=== PATIENT | male | born 2000 | race African-American/Black ===

== ENCOUNTER → 2023-07-01 | Emergency (ER) | payer SELFPAY ==
--- NOTE | 2023-07-01 20:43 | RAD REPORT ---
EXAM DESCRIPTION: US - Extremity Nonvascular Limited - 07/01/2023 7:30 pm CLINICAL HISTORY: breast lump, r/o abscess;Pain COMPARISON: No comparisons TECHNIQUE: Sonographic grayscale and color flow images of the right breast were obtained. FINDINGS: Evaluation of the lateral aspect of the right breast reveals a hypoechoic wider than tall well-circumscribed lesion with internal vascularity and a preserved echogenic hilum, measuring 1.2 x 1.1 x 0.9 cm, underlying the palpable abnormality, most compatible with a prominent lymph node. Incre ased echogenicity of the surrounding fat suggesting inflammatory changes. IMPRESSION: Palpable right breast abnormality corresponds to a prominent superficial lymph node with adjacent inflammatory changes in the subcutaneous fat compatible with reactive/inflammatory process. No appreciable fluid collections.
--- NOTE | 2023-07-01 20:49 | EDPHYS ---
Physician Documentation [facility] Name: Aly Montgomery Age: 22 yrs Sex: Male : 2000 Arrival Date: 07/01/2023 Time: 18:41 Bed 12 Private MD: ED Physician Johan Manuel Historical: - Allergies: 07/01 18:55 No Known Allergies; ap3 - Home Meds: 18:55 None [Active]; ap3 - PMHx: 18:55 None; ap3 - PSHx: 18:55 None; ap3 - Immunization history:: Client reports having NOT received the Covid vaccine. Flu vaccine is not up to date. - Social history:: Smoking status: Patient denies any tobacco usage or history of. Patient uses alcohol, occasionally. Vital Signs: 18:54 BP 135 / 77; Pulse 89; Resp 17; Temp 98.2; Pulse Ox 100% ; Weight 79.38 kg; Height 5 ap3 ft. 9 in. ; Pain 6/10; 18:54 Body Mass Index 25.84 (79.38 kg, 175.26 cm) ap3 18:54 Pain Scale: Adult ap3 MDM: 18:43 Patient medically screened. kb 07/01 18:52 Order name: US Bloom Nonvasular Limited; Complete Time: 20:45 kb Administered Medications: No medications were administered Disposition Summary: 07/01/23 20:49 Discharge Ordered Notes: Location: Home kb Condition: Stable kb Diagnosis - Other nonspecific lymphadenitis kb Followup: kb - With: Emergency Department - When: As needed - Reason: Worsening of condition Followup: kb - With: Private Physician - When: 2 - 3 days - Reason: Recheck today's complaints, Continuance of care, Re-evaluation by your physician Discharge Instructions: - Discharge Summary Sheet kb - Lymphadenopathy kb Forms: - Medication Reconciliation Form kb - Thank You Letter kb - Antibiotic Education kb - Prescription Opioid Use kb - Patient Portal Instructions kb - Leadership Thank You Letter kb Signatures: Dispatcher [employer] Payton Watson, Pema Arechiga, RN RN ap3
--- NOTE | 2023-07-01 20:49 | ER ---
Nurse's Notes [facility] Name: Aly Montgomery Age: 22 yrs Sex: Male : 2000 Arrival Date: 07/01/2023 Time: 18:41 Bed 12 Private MD: Diagnosis: Other nonspecific lymphadenitis Presentation: 07/01 18:54 Chief complaint: Patient states: he noticed a lump near his right nipple approx one ap3 week ago. patient currently rates his pain as a 6/10 on the pain scale. Coronavirus screen: At this time, the client does not indicate any symptoms associated with coronavirus-19. Ebola Screen: No symptoms or risks identified at this time. Initial Sepsis Screen: Does the patient meet any 2 criteria? No. Patient's initial sepsis screen is negative. Does the patient have a suspected source of infection? No. Patient's initial sepsis screen is negative. Risk Assessment: Do you want to hurt yourself or someone else? Patient reports no desire to harm self or others. Onset of symptoms is unknown. 18:54 Method Of Arrival: Ambulatory ap3 18:54 Acuity: BETHEL 3 ap3 Triage Assessment: 18:56 General: Appears in no apparent distress. Behavior is calm, cooperative, appropriate ap3 for age. Pain: Complains of pain in right breast Pain currently is 6 out of 10 on a pain scale. Pain began gradually. Neuro: Level of Consciousness is awake, alert, obeys commands, Oriented to person, place, time, situation, Appropriate for age. Cardiovascular: Patient's skin is warm and dry. Respiratory: Airway is patent Respiratory effort is even, unlabored, Respiratory pattern is regular, symmetrical. Historical: - Allergies: 18:55 No Known Allergies; ap3 - Home Meds: 18:55 None [Active]; ap3 - PMHx: 18:55 None; ap3 - PSHx: 18:55 None; ap3 - Immunization history:: Client reports having NOT received the Covid vaccine. Flu vaccine is not up to date. - Social history:: Smoking status: Patient denies any tobacco usage or history of. Patient uses alcohol, occasionally. Screenin:56 [facility] ED Fall Risk Assessment (Adult) History of falling in the last 3 months, ap3 including since admission No falls in past 3 months (0 pts). Abuse screen: Denies threats or abuse. Nutritional screening: No deficits noted. Tuberculosis screening: No symptoms or risk factors identified. Assessment: 19:20 General: Appears in no apparent distress. Behavior is calm, cooperative. Pain: Pain hb currently is 3 out of 10 on a pain scale. at worst was 6 out of 10 on a pain scale. Neuro: Level of Consciousness is awake, alert, obeys commands, Oriented to person, place, time, situation. Cardiovascular: Patient's skin is warm and dry. Respiratory: Respiratory effort is even, unlabored, Respiratory pattern is regular, symmetrical. GI: No signs and/or symptoms were reported involving the gastrointestinal system. : No signs and/or symptoms were reported regarding the genitourinary system. EENT: No signs and/or symptoms were reported regarding the EENT system. Derm: Reports pain near right nipple. Musculoskeletal: No signs and/or symptoms reported regarding the musculoskeletal system. 20:23 Reassessment: Patient appears in no apparent distress at this time. Patient and/or hb family updated on plan of care and expected duration. Pain level reassessed. Patient is alert, oriented x 3, equal unlabored respirations, skin warm/dry/pink. Vital Signs: 18:54 BP 135 / 77; Pulse 89; Resp 17; Temp 98.2; Pulse Ox 100% ; Weight 79.38 kg; Height 5 ap3 ft. 9 in. ; Pain 6/10; 18:54 Body Mass Index 25.84 (79.38 kg, 175.26 cm) ap3 18:54 Pain Scale: Adult ap3 ED Course: 18:43 Patient arrived in ED. rg4 18:43 Payton Padgett F[facility]-C [facility] kb 18:43 Johan Manuel MD is Attending Physician. kb 18:54 Pema Maharaj, ONEIL is Primary Nurse. ap3 18:55 Triage completed. ap3 18:56 Arm band placed on right wrist. ap3 18:56 Patient has correct armband on for positive identification. Bed in low position. Call ap3 light in reach. Side rails up X 1. Adult w/ patient. Pulse ox on. NIBP on. 19:32 US Extrmty Nonvasular Limited In Process Unspecified. EDMS 20:01 Primary Nurse role handed off by Pema Maharaj, ONEIL wm 20:22 Harrington, Tabby, RN is Primary Nurse. hb 20:23 No provider procedures requiring assistance completed. Patient did not have IV access hb during this emergency room visit. 20:59 Provided Education on: results, medications . hb Administered Medications: No medications were administered Medication: 20:23 VIS not applicable for this client. hb Outcome: 20:49 Discharge ordered by . aretha 20:59 Discharged to home ambulatory, with family, hb 20:59 Condition: stable 20:59 Discharge instructions given to patient, significant other, Instructed on discharge instructions, follow up and referral plans. medication usage, Demonstrated understanding of instructions, follow-up care, medications, 21:00 Patient left the ED. hb Signatures: Dispatcher [employer] EDMS Payton Padgett, PREP ROOM SUPERVISOR-C PREP ROOM SUPERVISOR-Ckb Tabby Harrington, RN RN Alycia Hansen 4 Pema Maharaj RN RN ap3 Joy Farrar
[2023-07-01 21:11] VITALS: BP 135/77; TEMP 98.2; O2SAT 100
== END ==
LOC: ER 18:41
DX: I88.8 Other nonspecific lymphadenitis (principal)
CPT/HCPCS: 76882

== ENCOUNTER → 2023-07-06 | Emergency (ER) | payer SELFPAY ==
[~2023-07-06] MED LIST: KETOROLAC 30 MG/ML INJ ONE
[2023-07-06 17:17] LABS: Hematocrit 43.4 % (39.6-49.0); MCV 86.3 fL (80-100); MPV 8.1 fL (7.6-11.3); Platelets 211 thou/uL (152-406); RBC Red Blood Cell Count 5.03 M/uL (4.33-5.43)
[2023-07-06 17:40] LABS: Albumin 3.5 g/dL (3.4-5.0); Bilirubin Total 0.5 mg/dL (0.2-1.0); Protein, Total 8.3 g/dL (6.4-8.2)
[2023-07-06 17:41] LABS: Potassium 4.3 mEq/L (3.5-5.1)
--- NOTE | 2023-07-06 18:17 | RAD REPORT ---
EXAM DESCRIPTION: CT - Thorax W/ Con - 07/06/2023 6:05 pm CLINICAL HISTORY: breast, axillary swelling COMPARISON: Extremity Nonvascular Limited dated 07/01/2023 TECHNIQUE: CT of the chest was obtained with IV contrast . All CT scans are performed using dose optimization technique as appropriate and may include automated exposure control or mA/KV adjustment according to patient size. FINDINGS: Chest Wall: 13 mm subcutaneous nodule in the right breast with adjacent inflammatory hodges es and mild skin thickening. This is superficial to the muscle. Enlarged right axillary lymph nodes n oted, the largest measuring 17 millimeters in short axis. Lungs: No acute abnormality. Pleura: No significant effusions or pneumothorax. Mediastinum/west: No pathologic lymphadenopathy. Pulmonary arteries/Aorta: No filling defect identified. No aortic aneurysm. Heart: No significant pericardial effusion. Normal heart size. Upper abdomen: No acute abnormality. Bones: No acute abnormality. IMPRESSION: Enlarged right breast nodule with inflammatory changes and right axillary lymphadenopath y. Given the patient's age and inflammatory change, an infectious or inflammatory process is most lik kennedy. Suggest clinical correlation. Clinical or imaging follow-up is suggested if a benign etiology is suspected. If the etiology is unclear and/or malignancy suspected, consider either ultrasound guided or surgical biopsy.
--- NOTE | 2023-07-06 18:28 | ER ---
Nurse's Notes [facility] Name: Aly Montgomery Age: 22 yrs Sex: Male : 2000 Arrival Date: 07/06/2023 Time: 15:52 Bed 9 Private MD: Diagnosis: Lymphadenopathy Presentation: 07/06 16:00 Chief complaint: Patient states: painful lump to right breast area, was told last ko1 Friday but it was a lymph node but now there is another one and its bigger. Has decreased appetite and had night sweats last night. Coronavirus screen: At this time, the client does not indicate any symptoms associated with coronavirus-19. Ebola Screen: No symptoms or risks identified at this time. Initial Sepsis Screen: Does the patient meet any 2 criteria? No. Patient's initial sepsis screen is negative. Does the patient have a suspected source of infection? No. Patient's initial sepsis screen is negative. Risk Assessment: Do you want to hurt yourself or someone else? Patient reports no desire to harm self or others. Onset of symptoms is unknown. 16:00 Method Of Arrival: Ambulatory ko1 16:00 Acuity: BETHEL 4 ko1 Triage Assessment: 16:03 General: Appears in no apparent distress. Behavior is calm, cooperative, appropriate ko1 for age. Pain: Complains of pain in right breast. Historical: - Allergies: 16:03 No Known Allergies; ko1 - Home Meds: 16:03 None [Active]; ko1 - PMHx: 16:03 None; ko1 - PSHx: 16:03 None; ko1 - Immunization history:: Adult Immunizations up to date. - Social history:: Smoking status: Patient denies any tobacco usage or history of. - Family history:: not pertinent. Screenin:[address] [facility] ED Fall Risk Assessment (Adult) History of falling in the last 3 months, bp including since admission No falls in past 3 months (0 pts). Abuse screen: Denies threats or abuse. Denies injuries from another. Nutritional screening: No deficits noted. Tuberculosis screening: No symptoms or risk factors identified. Assessment: 16:00 General: SEE TRIAGE NOTE. bp Vital Signs: 16:00 BP 127 / 67; Pulse 97; Resp 16; Temp 98.3; Pulse Ox 100% ; ko1 19:10 BP 131 / 75; Pulse 85; Resp 16; Pulse Ox 99% ; bp ED Course: 15:55 Patient arrived in ED. im 15:55 Johan Manuel MD is Attending Physician. rt 16:00 Patient has correct armband on for positive identification. bp 16:03 Triage completed. ko1 16:03 Arm band placed on right wrist. Patient placed in waiting room, Patient notified of ko1 wait time. 16:50 Oni Vera, RN is Primary Nurse. bp 17:14 Inserted saline lock: 22 gauge in right antecubital area, using aseptic technique. em1 18:07 CT Chest W/ Con In Process Unspecified. EDMS 18:27 Jozef Vargas DO is Referral Physician. rt 19:08 No provider procedures requiring assistance completed. IV discontinued, intact, bp bleeding controlled, No redness/swelling at site. Pressure dressing applied. Administered Medications: 17:16 Drug: Ketorolac IVP 15 mg IVP once Route: IVP; Site: right antecubital; bp 19:10 Follow up: Response: No adverse reaction bp Medication: 16:00 VIS not applicable for this client. bp Outcome: 18:27 Discharge ordered by MD. rt 19:09 Discharged to home ambulatory, with family, bp 19:09 Condition: stable 19:09 Discharge instructions given to patient, Instructed on discharge instructions, follow up and referral plans. medication usage, Demonstrated understanding of instructions, follow-up care, medications, Prescriptions given X 1, 19:11 Patient left the ED. bp Signatures: Dispatcher [employer] EDMD Angelo José em1 Oni Vera, ONEIL RN bp Danielle Cotto RN RN ko1 Johan Manuel MD MD rt Cami Cook im
--- NOTE | 2023-07-06 18:28 | EDPHYS ---
Physician Documentation [facility] Name: Aly Montgomery Age: 22 yrs Sex: Male : 2000 Arrival Date: 07/06/2023 Time: 15:52 Bed 9 Private MD: ED Physician Johan Manuel HPI: 07/06 16:28 This 22 yrs old Black Male presents to ER via Ambulatory with complaints of painful rt lump on chest. 16:29 Patient presents to the ED with swelling to the right side of the chest. The patient rt was seen in the ED few days ago for the same, was found to have lymphadenopathy. Patient states that that swelling has increased, reports another area of swelling adjacent to that as well as to the axilla. Reports night sweats. Denies other acute complaints, symptoms are mild in severity, no other aggravating relieving factors. Historical: - Allergies: 16:03 No Known Allergies; ko1 - Home Meds: 16:03 None [Active]; ko1 - PMHx: 16:03 None; ko1 - PSHx: 16:03 None; ko1 - Immunization history:: Adult Immunizations up to date. - Social history:: Smoking status: Patient denies any tobacco usage or history of. - Family history:: not pertinent. ROS: 16:29 Cardiovascular: Negative for chest pain, palpitations, and edema, Respiratory: Negative rt for shortness of breath, cough, wheezing, and pleuritic chest pain, Abdomen/GI: Negative for abdominal pain, nausea, vomiting, diarrhea, and constipation, MS/Extremity: Negative for injury and deformity, Skin: Negative for injury, rash, and discoloration, Neuro: Negative for headache, weakness, numbness, tingling, and seizure, 16:29 Constitutional: Positive for Night sweats, negative for fever, 16:29 Allergy/Immunology: 16:29 Hematologic/Lymphatic: Positive for tender nodes, Negative for petechiae, Exam: 16:29 Constitutional: This is a well developed, well nourished patient who is awake, alert, rt and in no acute distress. Head/Face: Normocephalic, atraumatic. Neck: Trachea midline, no thyromegaly or masses palpated, and no cervical lymphadenopathy. Supple, full range of motion without nuchal rigidity, or vertebral point tenderness. No Meningismus. Cardiovascular: Regular rate and rhythm with a normal S1 and S2. No gallops, murmurs, or rubs. Normal PMI, no JVD. No pulse deficits. Respiratory: Lungs have equal breath sounds bilaterally, clear to auscultation and percussion. No rales, rhonchi or wheezes noted. No increased work of breathing, no retractions or nasal flaring. Abdomen/GI: Soft, non-tender, with normal bowel sounds. No distension or tympany. No guarding or rebound. No evidence of tenderness throughout. Skin: Warm, dry with normal turgor. Normal color with no rashes, no lesions, and no evidence of cellulitis. Neuro: Awake and alert, GCS 15, oriented to person, place, time, and situation. Cranial nerves II-XII grossly intact. Motor strength 5/5 in all extremities. Sensory grossly intact. Cerebellar exam normal. Normal gait. Psych: Awake, alert, with orientation to person, place and time. Behavior, mood, and affect are within normal limits. 16:29 Chest/axilla: To palp apparent lymph nodes to the right anterior chest.. 16:29 Musculoskeletal/extremity: Tender, all 1 cm palpable node in the right axilla. Vital Signs: 16:00 BP 127 / 67; Pulse 97; Resp 16; Temp 98.3; Pulse Ox 100% ; ko1 19:10 BP 131 / 75; Pulse 85; Resp 16; Pulse Ox 99% ; bp MDM: 16:05 Patient medically screened. rt 18:52 Differential Diagnosis Lymphoma, lymphadenopathy, abscess. Data reviewed: vital signs, rt nurses notes, lab test result(s), radiologic studies. Independent interpretation of the following test(s) in the Emergency Department CT Scan: My interpretation is No drainable abscess, dilatation CT scan images. Counseling: I had a detailed discussion with the patient and/or guardian regarding the historical points, exam findings, and any diagnostic results supporting the discharge/admit diagnosis, lab results, radiology results, the need for outpatient follow up, to return to the emergency department if symptoms worsen or persist or if there are any questions or concerns that arise at home. 07/06 16:09 Order name: CBC with Diff; Complete Time: 17:41 rt 07/06 16:09 Order name: CMP; Complete Time: 17:41 rt 07/06 16:09 Order name: CT Chest W/ Con; Complete Time: 18:23 rt Administered Medications: 17:16 Drug: Ketorolac IVP 15 mg IVP once Route: IVP; Site: right antecubital; bp 19:10 Follow up: Response: No adverse reaction bp Disposition Summary: 07/06/23 18:27 Discharge Ordered Notes: Location: Home rt Problem: new rt Symptoms: are unchanged rt Condition: Stable rt Diagnosis - Lymphadenopathy rt Followup: rt - With: Jozef Vargas, DO - When: 5 - 6 days - Reason: Discharge Instructions: - Form - Return To Work wm - Discharge Summary Sheet rt - Lymphadenopathy rt Forms: - Work release form wm - Medication Reconciliation Form rt - Thank You Letter rt - Antibiotic Education rt - Prescription Opioid Use rt - Patient Portal Instructions rt - Leadership Thank You Letter rt Prescriptions: - cephalexin 500 mg Oral capsule - take 1 capsule ORAL route 3 times per day for 7 days; 21 capsule; Refills: 0, rt Product Selection Permitted Signatures: Dispatcher [employer] Oni Quintero, RN RN bp Danielle Cotto, ONEIL RN ko1 Johan Manuel MD MD rt
[2023-07-06 19:29] VITALS: BP 131/75; TEMP 98.3; O2SAT 99
== END ==
LOC: ER 15:52
DX: R59.0 Localized enlarged lymph nodes (principal)
CPT/HCPCS: 36415; 71260; 80053; 85025; Q9967

== ENCOUNTER 2024-03-31 18:29 | Emergency (ER) | payer SELFPAY ==
--- NOTE | 2024-03-31 19:59 | RAD REPORT ---
EXAMINATION: XR RIGHT CLAVICLE HISTORY: PAIN RIGHT TECHNIQUE: Multiple views of the right clavicle were obtained. COMPARISON: None FINDINGS: Mildly displaced fracture mid shaft right clavicle, obliquely oriented.
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
[2024-03-31] MEDS ORDERED: KETOROLAC 30 MG/ML INJ ONE (20:30)
[2024-03-31 20:57] VITALS: TEMP 97.2; O2SAT 100
[2024-03-31 20:58] VITALS: BP 128/65
== END 2024-03-31 20:46 | disposition home or self-care (01) ==
LOC: ER 18:29
DX: S42.021A Displaced fracture of shaft of right clavicle, initial encounter for closed fracture (principal); V43.63XA Car passenger injured in collision with pick-up truck in traffic accident, initial encounter